=== PATIENT | male | born 1940 | race Caucasian/White ===

== ENCOUNTER → 2021-03-07 | Outpatient (REF) | payer MEDICARE | LOC: M LAB REF 15:55 → M WUC 15:55 | PROVIDERS: ATTEND Nurse Practitioner Family | DX: L02.414 Cutaneous abscess of left upper limb (principal) ==

== ENCOUNTER → 2023-05-10 | Outpatient (CLI) | payer MEDICARE ==
[2023-05-11 23:07] LABS: PSA TOTAL 33.7 ng/mL (0.0-4.0)
== END ==
LOC: M PLALAB 10:07
PROVIDERS: ATTEND Urology
DX: R97.20 Elevated prostate specific antigen [PSA] (principal)

== ENCOUNTER → 2023-06-14 | Outpatient (REF) | payer MEDICARE | LOC: M SMT PRO 13:05 | PROVIDERS: ATTEND Urology | DX: R97.20 Elevated prostate specific antigen [PSA] (principal) ==

== ENCOUNTER → 2023-06-26 | Outpatient (REF) | payer MEDICARE ==
[2023-06-27 15:07] LABS: PSA TOTAL 27.5 ng/mL (0.0-4.0)
== END ==
LOC: M SFHCCLAY 09:33
PROVIDERS: ATTEND Urology
DX: R97.20 Elevated prostate specific antigen [PSA] (principal)

== ENCOUNTER → 2023-06-27 | Outpatient (REF) | payer MEDICARE ==
[2023-06-27 18:42] LABS: CALCIUM LEVEL 8.9 MG/DL (8.3-10.6); CREATININE FOR GFR 1.57 MG/DL (0.70-1.30); POTASSIUM SERUM 4.4 MMOL/L (3.5-5.1)
== END ==
LOC: M SFHCCLAY 10:46
PROVIDERS: ATTEND Urology
DX: C61 Malignant neoplasm of prostate (principal)

== ENCOUNTER → 2023-07-02 | Outpatient (CLI) | payer MEDICARE | LOC: M RAD 08:30 | PROVIDERS: ATTEND Urology | DX: C61 Malignant neoplasm of prostate (principal) | CPT/HCPCS: 74177; 78306; A9503 ==

== ENCOUNTER → 2023-07-19 | Outpatient (REF) | payer MEDICARE | LOC: M LABSMT 11:35 | PROVIDERS: ATTEND Urology | DX: C61 Malignant neoplasm of prostate (principal) ==

== ENCOUNTER 2023-07-30 13:17 | Emergency (ER) | payer MEDICARE, MEDICAID ==
[~2023-07-30] VITALS: Ht 175.3 cm; Wt 78.4 kg
[2023-07-30] MEDS ORDERED: LIDOCAINE 2% 5ML JELLY UROJET TOP ONE (15:35)
[2023-07-30 16:53] VITALS: BP 147/73; TEMP 98.5; O2SAT 99
== END 2023-07-30 17:31 | disposition home or self-care (01) ==
LOC: M ED 13:17
DX: N40.1 Benign prostatic hyperplasia with lower urinary tract symptoms (principal); C61 Malignant neoplasm of prostate

== ENCOUNTER → 2024-01-13 | Outpatient (REF) | payer MEDICARE | LOC: M SFHCCLAY 14:07 | PROVIDERS: ATTEND Urology | DX: C61 Malignant neoplasm of prostate (principal) ==

== ENCOUNTER → 2024-04-14 | Outpatient (REF) | payer MEDICARE | LOC: M SFHCCLAY 10:33 | PROVIDERS: ATTEND Urology | DX: C61 Malignant neoplasm of prostate (principal) ==

== ENCOUNTER → 2024-07-15 | Outpatient (REF) | payer MEDICARE ==
[2024-07-15 18:45] LABS: ALBUMIN 3.5 G/DL (3.2-5.2); BILIRUBIN,TOTAL 0.5 MG/DL (0.3-1.2); CALCIUM LEVEL 9.5 MG/DL (8.3-10.6); CHOLESTEROL RISK RATIO 5.06 (<5); CREATININE FOR GFR 1.37 MG/DL (0.70-1.30); GLOMERULAR FILTRATION RATE 52.6 (>35); HDL CHOLESTEROL 43.6 MG/DL (>40); HEMOGLOBIN A1c 5.6 % (4.0-6.0); LDL CHOLESTEROL 145.2 MG/DL (<100); NON-HDL-C 177.4 MG/DL; POTASSIUM SERUM 4.3 MMOL/L (3.5-5.1); PROSTATIC SPECIFIC AG MONITOR 12.73 NG/ML (< 4.00); TOTAL PROTEIN 7.3 G/DL (5.7-8.2)
== END ==
LOC: M SFHCCLAY 11:16
PROVIDERS: ATTEND Nurse Practitioner Family
DX: Z00.00 Encounter for general adult medical examination without abnormal findings (principal); E78.00 Pure hypercholesterolemia, unspecified; C61 Malignant neoplasm of prostate; Z79.899 Other long term (current) drug therapy

== ENCOUNTER → 2024-11-25 | Outpatient (REF) | payer MEDICARE, MEDICAID | LOC: M SFHCCLAY 09:10 | PROVIDERS: ATTEND Urology | DX: C61 Malignant neoplasm of prostate (principal) ==

== ENCOUNTER → 2024-12-04 | Outpatient (REF) | payer MEDICARE, MEDICAID | LOC: M SMT 17:04 | PROVIDERS: ATTEND Physician Assistant | DX: R30.0 Dysuria (principal) ==

== ENCOUNTER → 2025-01-13 | Outpatient (REF) | payer MEDICARE ==
[2025-01-13 17:38] LABS: HEMATOCRIT 41.3 % (42.0-52.0); HEMOGLOBIN 13.2 g/dl (13.5-17.5); MEAN CORPUSCULAR HEMOGLOBIN 31.1 pg (27.0-33.0); MEAN CORPUSCULAR VOLUME 97.4 fl (80.0-96.0); PLATELET COUNT, AUTOMATED 344 10^3/uL (150-450); RED BLOOD COUNT 4.24 10^6/uL (4.30-6.10); WHITE BLOOD COUNT 9.3 10^3/uL (4.0-10.0)
[2025-01-13 17:50] LABS: HEMOGLOBIN A1c 5.5 % (4.0-6.0)
[2025-01-13 18:07] LABS: ALBUMIN 3.4 G/DL (3.2-5.2); BILIRUBIN,TOTAL 0.4 MG/DL (0.3-1.2); CALCIUM LEVEL 8.8 MG/DL (8.3-10.6); CHOLESTEROL RISK RATIO 4.77 (<5); CREATININE FOR GFR 1.57 MG/DL (0.70-1.30); GLOMERULAR FILTRATION RATE 42.7 (>35); HDL CHOLESTEROL 48.6 MG/DL (>40); LDL CHOLESTEROL 146.6 MG/DL (<100); NON-HDL-C 183.4 MG/DL; POTASSIUM SERUM 4.5 MMOL/L (3.5-5.1); TOTAL PROTEIN 7.2 G/DL (5.7-8.2)
== END ==
LOC: M SFHCCLAY 11:23
PROVIDERS: ATTEND Nurse Practitioner Family
DX: E78.00 Pure hypercholesterolemia, unspecified (principal)

== ENCOUNTER → 2025-01-21 | Outpatient (REF) | payer MEDICARE | LOC: M SFHCCLAY 09:04 | PROVIDERS: ATTEND Urology | DX: C61 Malignant neoplasm of prostate (principal) ==

== ENCOUNTER → 2025-06-02 | Outpatient (REF) | payer MEDICARE | LOC: M SFHCCLAY 10:01 | PROVIDERS: ATTEND Urology | DX: C61 Malignant neoplasm of prostate (principal) ==

== ENCOUNTER → 2025-07-20 | Outpatient (REF) | payer MEDICARE | LOC: M SFHCCLAY 08:20 | PROVIDERS: ATTEND Physician Assistant | DX: C61 Malignant neoplasm of prostate (principal) ==